=== PATIENT | female | born 1950 | race Caucasian/White ===

== ENCOUNTER 2016-05-25 14:48 | Emergency (ER) | payer MEDICARE, OTHER ==
[~2016-05-25] VITALS: Wt 78.0 kg
[2016-05-25] MEDS ORDERED: ACETAMINOPHEN 500 MG TAB PO STA (16:03)
--- NOTE | 2016-05-25 16:03 | ERD ---
ER Documentation Chief Complaint Date/Time DATE: 05/25/16 TIME: 15:45 Chief Complaint LEFT LEG PAIN FOR THE PAST 3 WKS. NO TRAUMA OR SWELLING. NO RECENT TRAVEL HPI 65 y/o female presents to ED for left heel pain for 3 weeks. Reports that her left thigh pain has been existing for years. Denies headache, loss of consciousness, dizziness, blurry vision, changes in vision, photophobia, facial pain, ear pain, throat pain, difficulty swallowing, neck pain, shoulder pain, chest pain, cough, hemoptysis, abdominal pain, back pain, loss of appetite, nausea, vomiting, hematochezia, diarrhea, constipation, urinary symptoms, bladder and bowel incontinences, extremity weakness, extremity tenderness, numbness or tingling sensation, trauma/injuries/falls, difficulty walking, recent travel, recent exposure to illness, recent antibiotic use in the last 3 months, fever, chills. Allergy: NKA PMH: Hypertension, high cholesterol Family medical history: Denies Medications: Atenolol, simvastatin, Nexium Surgery: Denies Primary Social History: Retired Denies smoking, use of alcohol, use of illegal drugs. 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 ROS All systems reviewed and are negative except as per history of present illness. Medications Home Meds Active Scripts Cyclobenzaprine Hcl* (Cyclobenzaprine Hcl*) 10 Mg Tablet, 10 MG PO bid Y for PAIN, #20 TAB Prov:VEE BETANCOURT 05/25/16 PMhx/Soc History of Surgery: Yes (FIBROMA RIGHT AXILLARY SX) Anesthesia Reaction: No Hx Neurological Disorder: No Hx Respiratory Disorders: No Hx Cardiac Disorders: Yes (HTN) Hx Psychiatric Problems: No Hx Miscellaneous Medical Probl: No Hx Alcohol Use: No Hx Substance Use: No Hx Tobacco Use: No Smoking Status: Never smoker FmHx Denies Physical Exam Vitals Vital Signs Date Time Temp Pulse Resp B/P Pulse Ox O2 Delivery O2 Flow Rate FiO2 05/25/16 17:40 98.3 74 18 135/68 98 05/25/16 15:08 98.5 80 21 140/64 97 Physical Exam CONSTITUTIONAL: Well-appearing; well-nourished; in no apparent distress. HEAD: Normocephalic; atraumatic. EYES: Conjunctiva clear, sclera non-icteric, EOM intact. PERRL Ears: Hearing intact. EACs clear, TMs non-bulging, non-inflamed, translucent & mobile, ossicles normal appearance, No obstructions, no erythema, no discharges Nose: No obstructions. No polyps. No external lesions. Mucosa non-inflamed. No external lesions, septum and turbinates normal. No rhinorrhea. No discharges. Frontal sinus is non-tender to palpation. Maxillary sinus is non-tender to palpation. MOUTH: Moist mucous membranes, no lesion, no obstructions, no vesicles, no thrush, patent airway Throat: Uvula in midline. Right tonsil is +1 with no erythema, no exudate. Left tonsil is +1 with no erythema, no exudate. Tolerating secretions well. Good gag reflex. Patent airway. Neck: Supple, without lesions, bruits, or adenopathy. No mass. Thyroid non- enlarged and non-tender to palpation. CHEST: Symmetrical chest. Respirations even and not labored. No retractions noted. CARDIOVASCULAR: Normal S1, S2. RRR. No murmurs, gallops. RESPIRATORY: Normal chest excursion with respiration; breath sounds clear and equal bilaterally; no wheezes, rhonchi, or rales. Breathing even and unlabored. Speaking in clear, full, and complete sentences w/ ease. ABDOMEN: Normal bowel sounds normal. Soft, round, non-distended, non-guarding, no tenderness, no rebound, no organomegaly, no masses, no pulsating abdominal mass. No hernia. No peritoneal signs. : No CVA tenderness. BACK: Symmetrical shoulder. Spine is midline without deformity, tenderness. No evidence of trauma or deformity. PELVIS: Stable pelvis. No evidence of trauma or deformity. MUSCULOSKELETAL: Normal gait and station. No misalignment, asymmetry, crepitation, defects, tenderness, masses, effusions, decreased range of motion, instability, atrophy or abnormal strength or tone in the head, neck, spine, ribs , pelvis or extremities. No calf tenderness. Noted tenderness to left heel spur on deep palpation. Positive on left straight leg test. Bilateral calf has no swelling/discoloration/tenderness. Bilateral knee is unremarkable. Bilateral hip and pelvis are stable stable. No calf tenderness bilaterally. NEUROVASCULAR: Distal pulses are present. Pedal pulse are present, equal, and normal. Capillary refills are < 2 seconds. NEUROLOGIC: Alert and oriented x4. Speaks full and clear sentences. Cranial Nerves II-XII normal. Sensation to pain, touch, and proprioception normal. Grossly unremarkable. No neurologic deficits. Romberg test is negative. PSYCHOLOGICAL: The patients mood and manner are appropriate. No hallucinations , delusions. Not SI. Not HI. Has the capacity to decide for self SKIN: Normal for age and ethnicity; warm; dry; good turgor; no apparent lesions or exudates. No rashes, hives, discoloration. Intact. Results 24 hrs Current Medications Medications (Trade) Dose Ordered Sig/Vickie Route PRN Reason Start Time Stop Time Status Last Admin Dose Admin Acetaminophen (Tylenol Tab) 1,000 mg ONCE STAT PO 05/25/16 16:03 05/25/16 16:04 DC 05/25/16 16:14 Procedures/MDM Examination: MUSCULOSKELETAL: Normal gait and station. No misalignment, asymmetry, crepitation, defects, tenderness, masses, effusions, decreased range of motion, instability, atrophy or abnormal strength or tone in the head, neck, spine, ribs , pelvis or extremities. No calf tenderness. Noted tenderness to left heel spur on deep palpation. Positive on left straight leg test. Bilateral calf has no swelling/discoloration/tenderness. Bilateral knee is unremarkable. Bilateral hip and pelvis are stable stable. No calf tenderness bilaterally. NEUROVASCULAR: Distal pulses are present. Pedal pulse are present, equal, and normal. Capillary refills are < 2 seconds. Case and medical management was discussed with supervising doctor, Dr. Yash Richey. He agreed with my plan of care and follow-up care. Disease process, medical treatment was explained to the patient and family member. They verbalized understanding and agreed with the diagnostic tests, medical treatment, and follow-up care. Radiology: XR Foot FINDINGS: There is mild hallux valgus deformity with mild degenerative change of the first metatarsophalangeal joint with slight joint space narrowing. There is also mild degenerative change of the second and third metatarsal heads with small subchondral cysts and slight joint space narrowing. No fracture or dislocation is seen. There is mild calcaneal enthesopathy. There is a suggestion of slight soft tissue edema lateral to the hind foot. IMPRESSION: No definite acute fracture. Degenerative change. Suggestion of slight soft tissue edema in the lateral hind foot. Treatment: Tylenol p.o. Re-evaluation: Relieve the pain. Ambulatory with steady gait. Circulation and sensation is intact. No neurovascular deficits. Consultation: None Differential diagnosis: Fracture versus contusion versus sprain versus chronic pain versus sciatica versus DVT Medical decision [id number] y/o female presents to ED for left heel pain for 3 weeks. Reports that her left thigh pain has been existing for years. Patient's complaint, history, physical findings, diagnostic test results are consistent with my final diagnosis of chronic left leg pain/sciatic pain, foot sprain. Medications prescribed are the following: Flexeril Patient and family member are made aware of the side effects and adverse reactions of the medications prescribed. Instructed on when to seek emergent and medical attention in case allergic/anaphylactic reactions or severe side effects and or adverse reactions to medications. Patient and family member verbalized understanding. Patient instructed Instructed to follow-up with his PCP in 24-48 hours. PCP to refer patient to orthopedic doctor. Instructed to Call 911 for chest pain, shortness of breath. Advised to come back here in ED as soon as possible for severity of symptoms which includes but not limited to: any new symptoms; shortness of breath/difficulty of breathing; cardiovascular changes; severe gastrointestinal symptoms; signs and symptoms of bleeding and or infection; signs of compartment syndrome/neurovascular changes; neurological changes/deficits. Patient and family member verbalized understanding. Upon discharge, patient is alert and oriented x 4, speaks full and clear sentences, denies pain, has no neurological deficits, has no neurovascular deficits, difficulty of breathing. Breathing even and unlabored. Lung sounds are clear to auscultation. Not in distress. Appears comfortable. Ambulatory with steady gait. Appears satisfied with care provided here in ED. Departure Diagnosis: Primary Impression: Pain of left leg Additional Impression: Sciatica Laterality: left Qualified Code: M54.32 - Sciatica of left side Condition: Good Additional Instructions: Follow-up with PCP in 24-48 hours. PCP to refer patient to orthopedic doctor. VEE BETANCOURT May 25, 2016 16:03
--- NOTE | 2016-05-25 17:03 | RADRPT ---
PROCEDURE: XR Foot. CLINICAL INDICATION: pain TECHNIQUE: 3 views of the left foot were obtained. COMPARISON: None. FINDINGS: There is mild hallux valgus deformity with mild degenerative change of the first metatarsophalangeal joint with slight joint space narrowing. There is also mild degenerative change of the second and t hird metatarsal heads with small subchondral cysts and slight joint space narrowing. No fracture or dislocation is seen. There is mild calcaneal enthesopathy. There is a suggestion of slight soft ti ssue edema lateral to the hind foot. IMPRESSION: No definite acute fracture. Degenerative change. Suggestion of slight soft tissue edema in the late ral hind foot. RPTAT: HLBE Physician Kaushik Date Time Electronically viewed and signed by Taryn Martinez Physician on 05/25/2016 17:03 LE/
[2016-05-25] MEDS ORDERED: CYCL-319 PO (17:16)
[2016-05-25 17:40] VITALS: BP 135/68; PULSE 74; RESP 18; TEMP 98.3
== END 2016-05-25 17:40 | disposition home or self-care (01) ==
LOC: FTE 14:48
DX: M79.605 Pain in left leg (principal); M54.32 Sciatica, left side; I10 Essential (primary) hypertension

== ENCOUNTER 2016-07-16 12:14 | Emergency (ER) | payer MEDICARE, OTHER ==
[~2016-07-16] VITALS: Wt 79.0 kg
[~2016-07-16 12:14] MED LIST: CYCL-319 PO
[2016-07-16] MEDS ORDERED: KETOROLAC 30 MG INJ IM STA (12:57)
--- NOTE | 2016-07-16 13:48 | RADRPT ---
PROCEDURE: Left knee x-ray CLINICAL INDICATION: Left knee swelling and pain. TECHNIQUE: AP, lateral and oblique views of the left knee were obtained. COMPARISON: None FINDINGS: There is normal mineralization. No acute fracture or dislocation is seen. There are no significant degenerative changes. There is no joint effusion. There is no significant soft tissue swelling. IMPRESSION: Normal x-ray of the left knee. RPTAT:AAJJ Physician Patricia Date Time Electronically viewed and signed by Shakir Doe Physician on 07/16/2016 13:48 JM/
--- NOTE | 2016-07-16 13:52 | ERD ---
ER Documentation Chief Complaint Date/Time DATE: 07/16/16 Chief Complaint Left knee pain HPI The patient is a 65-year-old female with history of hypertension and hyperlipidemia, who presents the Emergency Department with complaint of left knee pain since yesterday. The patient reports that since yesterday she is been experiencing intermittent pain to the medial and posterior aspects of the left knee. The pain sometimes radiates down to the left calf. She rates her current pain as 0 out of 10, though notes that it increases to 6 out of 10 with palpation. She denies any erythema, warmth, swelling. Denies fevers or chills. Denies nausea or vomiting. Denies any falls, injury or trauma to the extremity. Denies any restricted range of motion. Denies any numbness, paresthesias or weakness of the distal extremity. The patient notes that she took Tylenol and Ibuprofen at home, with no significant relief of symptoms. ROS All systems reviewed and are negative except as per history of present illness. Medications Home Meds Active Scripts Tramadol HCl (Tramadol HCl) 50 Mg Tablet, 50 MG PO Q6 Y for PAIN, #20 TAB Prov:MIKHAIL SEVILLA PA-C 07/16/16 Cyclobenzaprine Hcl* (Cyclobenzaprine Hcl*) 10 Mg Tablet, 10 MG PO bid Y for PAIN, #20 TAB Prov:VEE BETANCOURT 05/25/16 PMhx/Soc History of Surgery: Yes (FIBROMA RIGHT AXILLARY SX) Anesthesia Reaction: No Hx Neurological Disorder: No Hx Respiratory Disorders: No Hx Cardiac Disorders: Yes (HTN) Hx Psychiatric Problems: No Hx Miscellaneous Medical Probl: No Hx Alcohol Use: No Hx Substance Use: No Hx Tobacco Use: No Physical Exam Vitals Vital Signs Date Time Temp Pulse Resp B/P Pulse Ox O2 Delivery O2 Flow Rate FiO2 07/16/16 12:17 98.0 81 18 140/72 99 Physical Exam Const: Well-developed, well-nourished, in no acute distress. Head: Normocephalic. Atraumatic Eyes: Normal Conjunctiva ENT: Normal External Ears, Nose and Mouth. Neck: Full range of motion. Resp: Clear to auscultation bilaterally Cardio: Regular rate and rhythm, no murmurs Skin: No abrasions. No lacerations. No petechiae or rashes Ext: No clubbing, cyanosis, or edema. Normal skin perfusion. Minimal tenderness to palpation at medial joint line of the left knee. Normal flexion of the left knee. Patient with pain upon full extension of the left knee. Increased discomfort with with plantarflexion but not dorsiflexion. No crepitus appreciated. No gross deformities. No focal swelling or erythema. No prepatellar effusion. Negative Josafat test. Negative anterior drawer test. No increased laxity with varus or valgus stress applied. No distal tib/fib tenderness. DP/PT pulses 2+. Capillary refill is less than 2 seconds. Muscle tone is normal. Compartments are soft. No abnormal bony prominences. Distal neurovascular status intact. No foot drop. No calf swelling or calf tenderness. No cording. Neur: Awake and alert. Motor and sensation grossly intact. Psych: Cooperative. Results 24 hrs Current Medications Medications (Trade) Dose Ordered Sig/Vickie Route PRN Reason Start Time Stop Time Status Last Admin Dose Admin Ketorolac Tromethamine (Toradol) 30 mg ONCE STAT IM 07/16/16 12:57 07/16/16 12:59 DC 07/16/16 13:06 Procedures/MDM DIAGNOSTIC TESTS AND INTERPRETATION: PROCEDURE: US DVT. CLINICAL INDICATION: Left lower extremity pain and swelling. TECHNIQUE: Multiple longitudinal and transverse images of the left lower extremity veins were obtained with aparicio scale and color Doppler imaging. 2D grayscale measurements with compression, color Doppler flow, and augmentation was performed. The calf veins were interrogated as well. COMPARISON: No prior studies are available for comparison. FINDINGS: The left common femoral, femoral and popliteal veins are normally compressible throughout. Color flow demonstrates normal filling of the vessel. Normal waveforms are visualized and there is normal response to augmentation. The calf veins are visualized and are equally unremarkable. IMPRESSION: No evidence of a deep vein thrombosis involving the left lower extremity. .Douglas Hoff MD, Date Time Electronically viewed and signed by .Douglas Hoff MD, on 07/16/2016 13: 54 PROCEDURE: Left knee x-ray CLINICAL INDICATION: Left knee swelling and pain. TECHNIQUE: AP, lateral and oblique views of the left knee were obtained. COMPARISON: None FINDINGS: There is normal mineralization. No acute fracture or dislocation is seen. There are no significant degenerative changes. There is no joint effusion. There is no significant soft tissue swelling. IMPRESSION:Normal x-ray of the left knee. Physician Patricia Date Time Electronically viewed and signed by Shakir Doe Physician on 07/16/2016 13:48 JOAN WRAP APPLICATION: INDICATION: Left knee pain. LOCATION: Left lower extremity, knee. NEUROVASCULAR EXAM: The patients extremity was neurovascularly intact prior to and status post joan wrap placement. MEDICAL DECISION MAKING: This is a 65-year-old female presenting to the Emergency Department with two days of nontraumatic left knee pain. The patient had tenderness to palpation over the medial joint line of the left knee on physical examination, and had pain upon fully extending the knee. Otherwise, no focal swelling or erythema. No gross deformities. Distal neurovascular status was intact, with 2+ peripheral pulses and normal capillary refill. The differential diagnosis includes, but is not limited to, septic joint, gout, arthritis, fracture, dislocation, sprain, strain, contusion, tendinitis, ligament injury, meniscal injury, malignancy. She had no calf swelling or calf tenderness, no US findings to suggest DVT. No focal swelling or erythema, no restricted range of motion, fevers, constitutional symptoms, or findings to suggest septic joint. Patient presentation not consistent with gout or inflammatory arthritis. No acute abnormalities were noted on x-ray performed. There is currently no clinical evidence of fracture, dislocation, subluxation or any other emergent medical condition. After rest and administration of Toradol, the patient reports no new complaints, and decreased pain. The patient' s left knee was placed in an joan wrap. Upon my review and interpretation of the patient's presentation and overall ER course, I believe the patient's symptoms are most consistent with left knee pain , uncertain etiology. At this time the patient is in stable condition, and therefore she can be discharged home with prescription for Tramadol (as she has Ibuprofen and Tylenol at home) and given strict return precautions for signs of deteriorating or worsening condition. She is advised to follow-up with her primary care provider for reevaluation and further management within the next 2- 3 days or return to the ER sooner for any new or worsening symptoms. I shared my medical decision making and plan with the patient and she verbally understands and agrees with the plan for further observation and care as an outpatient. At the time of discharge all questions were answered. Departure Diagnosis: Primary Impression: Left knee pain Chronicity: acute Qualified Code: M25.562 - Acute pain of left knee Condition: Stable Patient Instructions: Knee Pain, Uncertain Cause Additional Instructions: Call your primary care doctor TOMORROW for an appointment during the next 2-3 days.See the doctor sooner or return here if your condition worsens before your appointment time. MIKHAIL SEVILLA PA-C Jul 16, 2016 13:52
--- NOTE | 2016-07-16 13:54 | RADRPT ---
PROCEDURE: US DVT. CLINICAL INDICATION: Left lower extremity pain and swelling. TECHNIQUE: Multiple longitudinal and transverse images of the left lower extremity veins were obta ined with aparicio scale and color Doppler imaging. 2D grayscale measurements with compression, color D oppler flow, and augmentation was performed. The calf veins were interrogated as well. COMPARISON: No prior studies are available for comparison. FINDINGS: The left common femoral, femoral and popliteal veins are normally compressible throughout. Color flow demonstrates normal filling of the vessel. Normal waveforms are visualized and there is normal response to augmentation. The calf veins are visualized and are equally unremarkable. IMPRESSION: 1. No evidence of a deep vein thrombosis involving the left lower extremity. RPTAT: QQ .Douglas Hoff MD, MD Date Time Electronically viewed and signed by .Douglas Hoff MD, on 07/16/2016 13:54 .M/
[2016-07-16] MEDS ORDERED: TRAM50TA2 PO (14:16)
== END 2016-07-16 14:39 | disposition home or self-care (01) ==
LOC: FTE 12:14
DX: M25.562 Pain in left knee (principal); I10 Essential (primary) hypertension
CPT/HCPCS: 73562; 93922; 96372; 99285; J1885

== ENCOUNTER 2017-05-14 16:38 | Emergency (ER) | END 2017-05-14 20:30 | disposition left against medical advice (07) ==

== ENCOUNTER 2017-06-29 16:19 | Emergency (ER) | END 2017-06-29 21:10 | disposition home or self-care (01) ==

== ENCOUNTER 2017-09-16 11:57 | Emergency (ER) | END 2017-09-16 14:25 | disposition home or self-care (01) ==